=== PATIENT | female | born 1985 | race Caucasian/White ===

== ENCOUNTER 2020-01-11 18:07 | Emergency (ER) | payer SELFPAY ==
[~2020-01-11] VITALS: Ht 167.6 cm; Wt 91.4 kg
[2020-01-11 18:15] VITALS: BP 142/91
--- NOTE | 2020-01-11 18:19 | PHYS DOC ---
Adult General Chief Complaint Chief Complaint: COUGH...." I ve been sick for three weeks.. worse the last three day..s... coughing.. congestion, fever... " HPI HPI Patient is a 34 year old female who presents with above hx and complaints fever, cough, malaise, congestion, pharyngitis, arthralgia, and generalized fatigue. Patient did not get flu vaccination this season. Has been exposed to her children that had symptoms of influenza. No recent travel. No specific ill contacts. Patient does smoke. Review of Systems Review of Systems Constitutional: History of fever or chills [] Eyes: Denies change in visual acuity, redness, or eye pain [] HENT: History of nasal congestion and sore throat [] Respiratory: History of cough and wheezing Cardiovascular: No additional information not addressed in HPI [] GI: Denies abdominal pain, nausea, vomiting, bloody stools or diarrhea [] : Denies dysuria or hematuria [] Musculoskeletal: Denies back pain or joint pain [] Integument: Denies rash or skin lesions [] Neurologic: Denies headache, focal weakness or sensory changes [] Endocrine: Denies polyuria or polydipsia [] All other systems were reviewed and found to be within normal limits, except as documented in this note. Family History Family History Children have influenza symptoms- on child was positive influenza B, one child is positive for influenza A Current Medications Current Medications See nursing for home medications Allergies Allergies No known drug allergies Physical Exam Physical Exam Constitutional: Well developed, well nourished, no acute distress, non-toxic appearance. [] HENT: Normocephalic, atraumatic, bilateral external ears normal, oropharynx moist, mild injection of posterior pharynx and postnasal drainage, no oral exudates, nose swollen turbinates and clear rhinorrhea] Eyes: PERRLA, EOMI, conjunctiva normal, no discharge. [] Neck: Normal range of motion, no tenderness, supple, no stridor. [] Cardiovascular:Heart rate regular rhythm, no murmur [] Lungs & Thorax: Bilateral breath sounds equal apex with scattered wheezes on auscultation [] Abdomen: Bowel sounds normal, soft, no tenderness, no masses, no pulsatile masses. [] Skin: Warm, dry, no erythema, no rash. [] Back: No tenderness, no CVA tenderness. [] Extremities: No tenderness, no cyanosis, no clubbing, ROM intact, no edema. [] Neurologic: Alert and oriented X 3, normal motor function, normal sensory function, no focal deficits noted. [] Psychologic: Affect normal, judgement normal, mood normal. [] EKG EKG [] Radiology/Procedures Radiology/Procedures [] Course & Med Decision Making Course & Med Decision Making Pertinent Labs and Imaging studies reviewed. (See chart for details) Take Tamilfu 75 daily x 10 days. Patient encouraged not to smoke. Patient encouraged not to use marijuana. Patient uses MDI 2 puffs 4 times a day. Patient follow-up primary care. Patient return if any concerns. Use Tylenol and ibuprofen for fever or discomfort. Impression: 1. Bronchitis 2. Viral Syndrome 3. Exposure to Influ. A and Influ B in your children [] Dragon Disclaimer Dragon Disclaimer This electronic medical record was generated, in whole or in part, using a voice recognition dictation system. Departure Departure: Disposition: HOME/RESIDENCE PRIOR TO ADM Condition: STABLE Referrals: PCP,DWIGHT (PCP) Scripts Oseltamivir Phosphate (TAMIFLU) 75 Mg Capsule 75 MG PO DAILY for exposure to Influ A and B for 10 Days, #10 CAP Prov: ENMANUEL MIGUEL MD 01/11/20 Jose Disclaimer This chart was dictated in whole or in part using Voice Recognition software in a busy, high-work load, and often noisy Emergency Department environment. It may contain unintended and wholly unrecognized errors or omissions. ENMANUEL MIGUEL MD Jan 11, 2020 18:19
[2020-01-11] MEDS ORDERED: ACETAMINOPHEN 500 MG TABLET PO ONE (19:00)
[2020-01-11] MEDS ORDERED: predniSONE 10 MG TABLET PO ONE (19:00)
[2020-01-11] MEDS ORDERED: ALBUTEROL SULFATE 8GM INHALER. INH ONE (19:00)
[2020-01-11 19:36] LABS: INFLUENZA A PATIENT NEGATIVE (NEGATIVE); INFLUENZA B PATIENT NEGATIVE (NEGATIVE)
[2020-01-11 19:49] LABS: U PREG PATIENT NEGATIVE (NEG)
[2020-01-11 20:02] LABS: BACTERIA,URINE 0 /HPF (0-FEW); BILIRUBIN,URINE NEG (NEG); CLARITY,URINE CLOUDY; COLOR,URINE YELLOW; GLUCOSE,URINE NEG (NEG); NITRITE,URINE NEG (NEG); RBC,URINE 20-40 /HPF (0-2); SQUAMOUS EPITHELIAL CELL,UR FEW /LPF; UROBILINOGEN,URINE 0.2 mg/dL (0.2 mg/dL); WBC,URINE OCC /HPF (0-4)
[2020-01-11 20:05] LABS: BARBITURATES NEG (NEG); BENZODIAZEPINES NEG (NEG); CANNABINOIDS POS (NEG); COCAINE NEG (NEG); METHADONE NEG (NEG); OPIATES NEG (NEG); PHENCYCLIDINE NEG (NEG)
[2020-01-11 20:06] LABS: AMPHETAMINE/METHAMPHETAMINE NEG (NEG)
[2020-01-11] MEDS ORDERED: OSEL75CA PO (20:19)
[2020-01-11] MEDS ORDERED: OSELTAMIVIR 75 MG CAPSULE PO ONE (20:30)
== END 2020-01-11 20:38 | disposition home or self-care (01) ==
LOC: ER 18:07
DX: B34.9 Viral infection, unspecified (principal); J40 Bronchitis, not specified as acute or chronic; F17.200 Nicotine dependence, unspecified, uncomplicated
CPT/HCPCS: 36415; 80307; 81001; 81025; 87070; 87804; 87880; 94640; 99284; J7512; J7613; 94664